=== PATIENT | male | born 1960 | race Caucasian/White ===

== ENCOUNTER 2016-12-18 20:55 | Emergency (ER) | payer OTHER ==
[2016-12-18 20:55] VITALS: BP 102/82; PULSE 116; RESP 20
[~2016-12-18 20:55] MED LIST: LISI20TA PO; Medical Marijuana INH; OXY40 PO; OXYC-176 PO
[2016-12-18] MEDS ORDERED: Calcium Chl 10% 1 Gm/10 mL Syringe ONE (20:56)
[2016-12-18] MEDS ORDERED: EPINEPHrine 0.1 mg/mL 10 mL Syringe ONE (20:56)
[2016-12-18] MEDS ORDERED: Sodium Bicarb 1 mEq/mL 50 mL Inj ONE (20:56)
[2016-12-18] MEDS ORDERED: EPINEPHrine 0.1 mg/mL 10 mL Syringe IV ONE ×5 (21:04→21:17)
--- NOTE | 2016-12-18 21:04 | ED.REPORT ---
HPI-Cardiac Arrest Date of Service Dec 18, 2016 ED Provider: Daniel Kaufman MD Patient is a 56 year old male who presents to the ED via EMS s/p being found unresponsive. Per medics, had been giving CPR for 30 minutes prior to their arrival. Total, he was given 4 rounds of epinephrine, 25g D-50, 5 mg versed, and 100 of rocuronium en route. 30 minutes into transportation the patient coded again. He did not have a shockable rhythm at any point during transport. He arrives intubated. Nursing Notes Stated Complaint: STATUS POST CARDIAC ARREST Nursing Notes Reviewed: Yes Allergies: Coded Allergies: No Known Allergies (Verified Allergy, Mild, 12/24/09) Scheduled ([Medical Marijuana]) INH TID vaporizor prn Lisinopril-Expunged Drug, Do Not Renew! (Lisinopril-Expunged Drug, Do Not Renew! ) 20 Mg Tablet 20 MG PO AM Oxycodone/APAP-Expunged Drug, Do Not Renew! (Percocet 5/325-Expunged Drug, Do Not Renew!) 1 Each Tablet 5-325 MG PO Q4-6H prn oxyCODONE-Expunged, Do Not Renew! (OxyCONTIN-Expunged, Do Not Renew!) 40 Mg Tab.sr.12h 40 MG PO DAILY prn severe pain General Time Seen by Provider: 21:03 Chief Complaint Cardiac arrest, found dwn Down Time Prior to EMS: 21 - 40 min Hx Obtained From: EMS Unable to Obtain Hx: Patient condition Arrived By: Ambulance Immunizations: Unknown Past Medical History Past Medical History Per past records, prostate cancer Unable to Obtain History Past medical history, Past surgical history, Family history, Smoking history, Social history, Occupation, Ambulatory status Review of Systems Unable to Obtain ROS Patient condition, Intubated Physical Exam Nursing note and vitals reviewed. Constitutional: Ill appearing, cachectic, elderly male. No external signs of trauma. Head: Normocephalic. Dried blood across face. Mouth/Throat: Intubated with a 7.5 tube. Mucous membranes dry. Eyes: Pupils fixed and dilated. Cardiovascular: Pulses with compressions. Poor peripheral perfusion. Pulmonary/Chest: Breath sounds equal bilaterally. End tidal CO2 persistently below 10. Musculoskeletal: Extremities cool and pale. Good access peripherally. Neurological: GCS 3T. Does not respond to painful stimuli. Skin: Cool and dry. Appears pale. Psychiatric: Unable to assess due to patient's condition. Initial Vital Signs Vital Signs (First) Date Time Temp Pulse Resp B/P Pulse Ox O2 Delivery O2 Flow Rate FiO2 12/18/16 20:55 116 20 102/82 ET Tube Re-Eval/Medical Decision Med Decision/Clinical Course 56-year-old male presenting to the ED via EMS for evaluation after being found to have been pulseless and not breathing at home by his , per their report. He had extensive resuscitation en route with ROSC x 2, but never had a shockable rhythm. By the time of arrival, he had had approx 45 mins of CPR in total. Lost pulse again shortly after arrival - CPR continued here by ACLS protocol; please see radiology special procedure tech for full details. Unclear etiology of initial insult that would have caused him to arrest; no further history available except as noted. After extensive time down, persistent ETCO2 less than 10, and no ROSC despite maximal therapy, code was called at 2121. I discussed his with his family upon their arrival; all questions answered. Re-Evaluation/Progress #1: Time of Eval: 21:04 Re-Evaluation/Progress Note: Pulses were lost. Compressions were given until time of at 2121. Re-Evaluation/Progress #2: Time of Eval: 21:40 Re-Evaluation/Progress Note: Discussed pt's case and condition with family. Counseled Regarding: Other Discharge & Departure Impression: Primary Impression: Cardiac arrest Disposition: All VS Reviewed: Yes Condition: Referrals: Brett Griffiths MD (PCP) Crit Care Except Billable Proc Time Spent: 30-74 minutes Services Performed: Patient management by me, Time spent at bedside, Discussing patient care, Documentation in record, Time with fam/surrogate Critical Care Notes: Please see MDM. Scribe Attestation Portions of this note were transcribed by Gordo Redmond. I, Dr. Kaufman personally performed the history, physical exam and medical decision-making; I reviewed and confirmed the accuracy of the information in the transcribed note. Signed by: Gordo Redmond 12/18/[id number] copies to: Brett Griffiths MD, William B MD Dec 18, 2016 21:04 GORDO REDMOND Dec 18, 2016 21:16
[2016-12-18] MEDS ORDERED: Sodium Bicarb 1 mEq/mL 50 mL Inj IV ONE (21:05)
[2016-12-18] MEDS ORDERED: Calcium Chloride 10% (Gm) 1 Gm/10 mL Inj IV ONE (21:09)
== END 2016-12-18 21:22 | disposition expired ==
LOC: SED 20:55
DX: I46.9 Cardiac arrest, cause unspecified (principal); Z85.46 Personal history of malignant neoplasm of prostate
CPT/HCPCS: 92950; 94002; 99291; J0171; J7050